=== PATIENT | female | born 1985 | race Caucasian/White ===

== ENCOUNTER → 2016-10-20 | Outpatient (CLI) | payer OTHER ==
--- NOTE | 2016-10-20 14:09 | DX ---
PA and Lateral Chest Indication: Cough for 6 weeks. Evaluate for community acquired pneumonia. Comparison: Rib series dated November 06, 2011 Findings: Lungs are well aerated and clear. No consolidation, reticulonodular pattern, edema, pulmona ry nodule, or effusion. The heart size is normal. Thoracic spine has minimal dextrocurvature. Impression: Clear lungs. No pneumonia.
== END ==
LOC: BMCIMAGING 12:38
PROVIDERS: ATTEND Family Medicine
DX: R05 Cough (principal)